=== PATIENT | male | born 1990 | race Caucasian/White ===

== ENCOUNTER 2017-05-06 15:54 | Emergency (ER) | payer OTHER ==
--- NOTE | 2017-05-06 16:32 | XRAY Preliminary Report ---
Exam: XR Chest 2 View PA/LAT IMPRESSION: Patchy lingular opacity, correlate clinically. [facility] SITE ID: [id number]
--- NOTE | 2017-05-06 16:35 | XRAY Report ---
EXAM: CHEST RADIOGRAPHY EXAM DATE: 05/06/2017 04:20 PM. CLINICAL HISTORY: Shortness of breath. COMPARISON: 04/15/2015. TECHNIQUE: 2 views. FINDINGS: Lungs/Pleura: Patchy opacity in the lingula. No pleural effusions. No pneumothorax. Mediastinum: Heart and mediastinal contours are unremarkable. Other: None. IMPRESSION: Patchy lingular opacity, correlate clinically. [facility] Referring Provider Line: [phone] SITE ID: [id number]
[2017-05-06] MEDS ORDERED: ALBUTEROL NEB 2.5 MG/3 ML INH STA ×2 (17:11→19:58)
--- NOTE | 2017-05-06 17:19 | ED Physician Documentation ---
History of Present Illness - Stated complaint Stated Complaint: DIFF BREATHING - Chief complaint Chief Complaint: Resp - Additonal information Additional information: hx from pt healthy 27 AD [place] male smoker to ER with SOA X 3 days no fever cough today h similar sx few m ago - dx asthma and maybe pna recent flight home from [place] no leg swelling Review of Systems Constitutional: denies: Fever Throat: denies: Sore throat Cardiac: reports: Chest pain / pressure (pleuritic) Respiratory: reports: Dyspnea, Cough, Wheezing GI: denies: Abdominal Pain Musculoskeletal: denies: Extremity swelling Endocrine: denies: Easy bruising / bleeding Immunocompromised: denies: Immunocompromised PD PAST MEDICAL HISTORY - Past Medical History Past Medical History: Yes Cardiovascular: Hypertension - Past Surgical History Past Surgical History: No - Present Medications Home Medications: Ambulatory Orders Medication Instructions Recorded Confirmed Albuterol Sulfate [Proair Hfa 2 puffs INH Q4H PRN #1 inhaler 05/06/17 Inhaler] Azithromycin [Zithromax] 250 mg PO DAILY #4 tablet 05/06/17 predniSONE [Deltasone] 60 mg PO DAILY 5 Days 05/06/17 - Allergies Allergies/Adverse Reactions: Allergies Allergy/AdvReac Type Severity Reaction Status Date / Time Sulfa (Sulfonamide Allergy Severe Edema Verified 04/15/15 20:31 Antibiotics) - Social History Does the pt smoke?: Yes Smoking Status: Current every day smoker Does the pt drink ETOH?: Yes Does the pt have substance abuse?: No - Immunizations Immunizations are current?: Yes - POLST Patient has POLST: No PD ED PE NORMAL - Vitals Vital signs reviewed: Yes - General General: Alert and oriented X 3 - HEENT HEENT: PERRL - Neck Neck: Supple, no meningeal sign - Cardiac Cardiac: RRR - Respiratory Respiratory: Other (appears very SOA, breathing deeply with visible effort, anna wheeze) - Derm Derm: Normal color - Extremities Extremities: No edema, No calf tenderness / cord Results - Vitals Vitals: Vital Signs - 24 hr 05/06/17 05/06/17 05/06/17 15:58 18:52 19:27 Temperature 36.9 C 36.8 C Heart Rate 115 H 120 H 112 H Respiratory 18 18 18 Rate Blood Pressure 139/82 H 151/99 H 151/72 H O2 Saturation 98 95 94 Oxygen O2 Source Room air - Labs Labs: Laboratory Tests 05/06/17 17:23 Creatinine 1.0 Estimated GFR (MDRD) 91 - Rads (name of study) CXR Radiology: See rad report (posible lingualr infiltrate) CTPA Radiology: See rad report (no PE, upper lobe patchy distribution groundglass airspace dz likely 2/2 infectious / inflammatory etiologies) PD MEDICAL DECISION MAKING - ED course ED course: smoker travel tachypneic - not low risk so D dimer N/A - got CTPA - CTPA neg for PE but shows pna - will tx for pna - improved breathing after neb - will dc with zmax pred MDI and close fup Departure - Departure Disposition: Home, Self Care Clinical Impression: Wheezing Pneumonia Qualifiers: Pneumonia type: due to unspecified organism Laterality: bilateral Lung location : upper lobe of lung Qualified Code(s): J18.9 - Pneumonia, unspecified organism Condition: Good Instructions: ED Pneumonia Adult, ED Wheezing, ED Inhaler Use Follow-Up: [facility] Fern[facility]dez [Provider Group] (Sunday for a recheck - please make sure they recheck your blood pressure as well, it was high today) Prescriptions: predniSONE [Deltasone] 60 mg PO DAILY 5 Days Albuterol Sulfate [Proair Hfa Inhaler] 2 puffs INH Q4H PRN #1 inhaler PRN Reason: Shortness Of Air/Wheezing Azithromycin [Zithromax] 250 mg PO DAILY #4 tablet Forms: Activity restrictions
[2017-05-06] MEDS ORDERED: ALBUTEROL NEB 2.5 MG/3 ML INH ONE ×2 (17:25→20:11)
[2017-05-06] MEDS ORDERED: IOPAMIDOL-300 100 ML VIAL ONE (18:16)
[2017-05-06] MEDS ORDERED: IOPAMIDOL-300 100 ML VIAL IVP ONE (19:25)
[2017-05-06] MEDS ORDERED: DEXAMETHASONE 10 MG/ML VIAL PO STA (19:58)
--- NOTE | 2017-05-06 20:00 | CT Preliminary Report ---
Exam: CT Chest Angio (PE) IMPRESSION: 1. No pulmonary embolism. 2. Predominantly upper lobe patchy distribution bilateral groundglass airspace disease likely seconda ry to infectious/inflammatory etiologies. [facility] SITE ID: [id number]
--- NOTE | 2017-05-06 20:02 | CT Report ---
EXAM: CT ANGIOGRAM CHEST EXAM DATE: 05/06/2017 07:25 PM. CLINICAL HISTORY: Cp dyspnea tachypnea smoker travel. COMPARISON: None. TECHNIQUE: Routine helical imaging was performed through the chest in the pulmonary arterial phase. I V Contrast: 80 mL Isovue 300. Reconstructions: Coronal 3-D MIP reconstructions.Sagittal and coronal. In accordance with CT protocol optimization, one or more of the following dose reduction techniques w ere utilized for this exam: automated exposure control, adjustment of mA and/or KV based on patient s ize, or use of iterative reconstructive technique. FINDINGS: Pulmonary Arteries: Diagnostic quality: Adequate through the segmental arteries. No evidence for acute or chronic pulmona ry emboli. RV/LV is within normal limits. There is no interventricular septal bowing. There is no reflux of cont rast material in the IVC. Lungs/Pleura: Groundglass opacities, patchy in distribution predominantly in the upper lobes with min imal lower lobe involvement. No pleural effusion or pneumothorax. No lung nodules. Mediastinum: Normal. No cardiac enlargement or adenopathy. Thoracic Aorta: Unremarkable. Upper Abdomen: Unremarkable. Other: None. IMPRESSION: 1. No pulmonary embolism. 2. Predominantly upper lobe patchy distribution bilateral groundglass airspace disease likely seconda ry to infectious/inflammatory etiologies. [facility] Referring Provider Line: [phone] SITE ID: [id number]
[2017-05-06] MEDS ORDERED: DEXAMETHASONE 10 MG/ML VIAL ONE (20:14)
[2017-05-06] MEDS ORDERED: AZITHROMYCIN 250 MG TABLET PO STA (20:18)
[2017-05-06] MEDS ORDERED: AZITHROMYCIN 250 MG TABLET PO ONE (20:32)
[2017-05-06 20:34] VITALS: BP 131/75
== END 2017-05-06 20:42 | disposition home or self-care (01) ==
LOC: ED 15:54
DX: J18.9 Pneumonia, unspecified organism (principal); F17.200 Nicotine dependence, unspecified, uncomplicated; I10 Essential (primary) hypertension
CPT/HCPCS: 36415; 71020; 71275; 82565; 94640; 94664; 99283; 99284; A9270; J7613; Q9967